=== PATIENT | male | born 1975 | race American Indian/Alaskan Native ===

== ENCOUNTER 2020-04-28 18:38 | Emergency (ER) | payer OTHER ==
--- NOTE | 2020-04-28 19:22 | Event Note ---
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 pt denies fever or chills denies smoking, ocassional etoh. symptoms are exacerbated by activity, symptoms are relieved by rest. This initial assessment/diagnostic orders/clinical plan/treatment(s) is/are subject to change based on patients health status, clinical progression and re- assessment by fellow clinical providers in the ED. Further treatment and workup at subsequent clinical providers discretion. Patient/guardian urged not to elope from the ED as their condition may be serious if not clinically assessed and managed. Initial orders include: ekg, trop, cxr, cmp, cbc, ua.
[2020-04-28 19:42] LABS: Basophils # (Auto) 0.1 K/mm3 (0.0-0.1); Basophils % (Auto) 0.8 % (0.0-1.8); Eosinophils # (Auto) 0.1 K/mm3 (0.0-0.4); Hematocrit 44.4 % (35.5-45.6); Hemoglobin 15.1 gm/dl (11.8-15.2); Lymphocytes % (Auto) 46.5 % (13.4-35.0); Mean Corpuscular HGB Conc 34 % (32-34); Mean Corpuscular Volume 85 fl (84-94); Monocytes # (Auto) 0.5 K/mm3 (0.0-0.8); Platelet Count 206 K/mm3 (140-440); Red Blood Count 5.24 M/mm3 (3.65-5.03); Red Cell Distribution Width 14.9 % (13.2-15.2)
[2020-04-28 19:59] LABS: Alanine Aminotransferase 26 units/L (7-56); Albumin 4.5 g/dL (3.9-5); BUN/Creatinine Ratio 16; Blood Urea Nitrogen 21 mg/dL (9-20); Calcium 9.2 mg/dL (8.4-10.2); Hemolysis Index 13
--- NOTE | 2020-04-28 20:08 | XRay Report ---
CHEST 1 VIEW INDICATION / CLINICAL INFORMATION: dizziness. COMPARISON: None available. FINDINGS: SUPPORT DEVICES: None. HEART / MEDIASTINUM: No significant abnormality. LUNGS / PLEURA: No significant pulmonary or pleural abnormality. No pneumothorax. ADDITIONAL FINDINGS: No significant additional findings. IMPRESSION: No significant abnormality Signer Name: El Barlow MD FACR Signed: 04/28/2020 8:04 PM Workstation Name: [id number]
--- NOTE | 2020-04-28 21:43 | Emergency Department Report ---
ED Dizziness HPI - General Chief Complaint: Dizziness Stated Complaint: BLOOD IN STOOL/LIGHT HEADED Time Seen by Provider: 04/28/20 21:05 Source: patient Mode of arrival: Ambulatory Limitations: No Limitations - History of Present Illness Initial Comments: 44-year-old male with a past medical history of hypertension, obesity, elevated cholesterol not currently on medications presents to the hospital with complaints of intermittent lightheadedness x1 week. Patient states that 2 months ago he presented to the ER with similar symptoms and was treated for sinus infection with antibiotics and nasal spray. Patient complains of continued sinus congestion and is currently taking an inhaled steroid. 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 He endorses that he always feels tired. He has been having heartburn for several months that are worse when lying supine at night and causes burning irritation to his throat when lying supine. Sometimes the heartburn wakes him up from his sleep. Patient has taken Tums intermittently and notices that symptoms are worse when he eats late at night. He denies exertional chest pain, abdominal pain shortness of breath, nausea, vomiting, diaphoresis, hematemesis, melena, calf tenderness, or leg edema. Patient states he noticed blood on his stool when he wiped after bowel movement 4 days ago. Patient has a PMD visit scheduled for mid May - Related Data Previous Rx's Medication Instructions Recorded Last Taken Type Famotidine [Pepcid] 20 mg PO BID #30 tablet 04/28/20 Unknown Rx Sodium Chloride [Saline Nasal 1 - 2 sprays NS PRN PRN #1 bottle 04/28/20 Unknown Rx [place]] Allergies Allergy/AdvReac Type Severity Reaction Status Date / Time No Known Allergies Allergy Unverified 04/28/20 19:19 ED Review of Systems ROS: Stated complaint: BLOOD IN STOOL/LIGHT HEADED Other details as noted in HPI Comment: All other systems reviewed and negative ED Past Medical Hx - Past Medical History Previous Medical History?: Yes Hx Hypertension: Yes Additional medical history: High Cholesterol. Obesity - Surgical History Past Surgical History?: No - Social History Smoking Status: Current Every Day Smoker Substance Use Type: None - Medications Home Medications: Home Medications Medication Instructions Recorded Confirmed Last Taken Type Famotidine [Pepcid] 20 mg PO BID #30 tablet 04/28/20 Unknown Rx Sodium Chloride [Saline Nasal 1 - 2 sprays NS PRN PRN #1 bottle 04/28/20 Unknown Rx [place]] ED Physical Exam - General Limitations: No Limitations - Other Other exam information: General: No acute distress Head: Atraumatic Eyes: normal appearance ENT: Moist mucous membranes, no sinus tenderness Neck: Normal appearance, no midline tenderness Chest: Clear to auscultation bilaterally CV: Regular rate and rhythm Abdomen: Soft, normal bowel sounds, nontender, nondistended, no rebound or guarding Rectal: Guaiac positive brown stool without gross blood or melena Back: Normal inspection Extremity: Normal inspection, full range of motion, no calf tenderness or leg edema Neuro: Alert O x 3, no facial asymmetry, speech clear, no gross motor sensory deficit Psych: Appropriate behavior Skin: No rash ED Course Vital Signs 04/28/20 04/28/20 19:14 21:53 Temperature 98.1 F Pulse Rate 85 77 Respiratory 18 16 Rate Blood Pressure 140/103 Blood Pressure 144/101 [Left] O2 Sat by Pulse 98 99 Oximetry ED Medical Decision Making - Lab Data Result diagrams: 04/28/20 19:31 04/28/20 19:31 Lab Results 04/28/20 04/28/20 Range/Units 19:31 19:31 WBC 6.6 (4.5-11.0) K/mm3 RBC 5.24 H (3.65-5.03) M/mm3 Hgb 15.1 (11.8-15.2) gm/dl Hct 44.4 (35.5-45.6) % MCV 85 (84-94) fl MCH 29 (28-32) pg MCHC 34 (32-34) % RDW 14.9 (13.2-15.2) % Plt Count 206 (140-440) K/mm3 Lymph % (Auto) 46.5 H (13.4-35.0) % Stewart % (Auto) 8.0 H (0.0-7.3) % Eos % (Auto) 2.0 (0.0-4.3) % Baso % (Auto) 0.8 (0.0-1.8) % Lymph # (Auto) 3.0 (1.2-5.4) K/mm3 Stewart # (Auto) 0.5 (0.0-0.8) K/mm3 Eos # (Auto) 0.1 (0.0-0.4) K/mm3 Baso # (Auto) 0.1 (0.0-0.1) K/mm3 Seg Neutrophils % 42.7 (40.0-70.0) % Seg Neutrophils # 2.8 (1.8-7.7) K/mm3 Sodium 139 (137-145) mmol/L Potassium 4.2 (3.6-5.0) mmol/L Chloride 105.8 (98-107) mmol/L Carbon Dioxide 26 (22-30) mmol/L Anion Gap 11 mmol/L BUN 21 H (9-20) mg/dL Creatinine 1.3 (0.8-1.3) mg/dL Estimated GFR 59 ml/min BUN/Creatinine Ratio 16 % Glucose 97 (75-100) mg/dL Calcium 9.2 (8.4-10.2) mg/dL Total Bilirubin 0.50 (0.1-1.2) mg/dL AST 15 (5-40) units/L ALT 26 (7-56) units/L Alkaline Phosphatase 78 (35-129) units/L Troponin T < 0.010 (0.00-0.029) ng/mL Total Protein 7.3 (6.3-8.2) g/dL Albumin 4.5 (3.9-5) g/dL Albumin/Globulin Ratio 1.6 % - Radiology Data Radiology results: report reviewed Chest x-ray: No acute finding - Medical Decision Making PERC PE score 0. Patient does not endorse vertigo Orthostatics negative Labs, EKG, chest x-ray unremarkable Patient will be treated with Pepcid for longstanding heartburn Patient does have guaiac positive brown stool without gross bleeding and only reports blood with wiping and not bleeding in the toilet or persistent GI bleed. Normal H&H. Outpatient follow-up advised BP elevated and pt will be placed on norvasc pt encouraged to exercise and lose weight Critical Care Time: No Critical care attestation.: If time is entered above; I have spent that time in minutes in the direct care of this critically ill patient, excluding procedure time. ED Disposition Clinical Impression: Lightheadedness, Nasal congestion, Gastric reflux, Hypertension Disposition: TO HOME OR SELFCARE Is pt being admited?: No Does the pt Need Aspirin: No Condition: Stable Instructions: Gastroesophageal Reflux Disease, Adult, [id number], Dizziness, [id number], Allergic Rhinitis, Adult, Hypertension (ED), Hypertension, Adult Additional Instructions: Take the medication as prescribed. Follow-up with your doctor or doctor/clinic provided. Return if symptoms worsen as indicated by your discharge instructions. Prescriptions: Famotidine [Pepcid] 20 mg PO BID #30 tablet Sodium Chloride [Saline Nasal [place]] 1 - 2 sprays NS PRN PRN #1 bottle PRN Reason: Nasal Congestion Referrals: BAL AWAN MD [Staff Physician] - 3-5 Days [facility] [Provider Group] - 3-5 Days Time of Disposition: 22:00
[2020-04-28 21:54] VITALS: BP 144/101
== END 2020-04-28 22:15 | disposition home or self-care (01) ==
LOC: ED 18:38
DX: K21.9 Gastro-esophageal reflux disease without esophagitis (principal); R42 Dizziness and giddiness; R09.81 Nasal congestion; I10 Essential (primary) hypertension; F17.200 Nicotine dependence, unspecified, uncomplicated; Z79.899 Other long term (current) drug therapy
CPT/HCPCS: 36415; 71046; 80053; 82271; 84484; 85025; 93005